=== PATIENT | female | born 2005 | race Caucasian/White ===

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

== ENCOUNTER 2023-01-08 17:21 | Emergency (ER) | payer OTHER, SELFPAY ==
--- NOTE | ~2023-01-08 | XR_ITS ---
EXAMINATION: XR wrist RT min 3V INDICATION: Right wrist pain TECHNIQUE: Four views of the right wrist are obtained. COMPARISON: None available FINDINGS: No fracture, dislocation, or subluxation. The bones, soft tissues, and joint spaces are nor mal. IMPRESSION: 1. No acute osseous abnormality. Reviewed, dictated and finalized at location F.
--- NOTE | 2023-01-08 17:24 | ED.UPPEXIN ---
HPI - Extremity Injury (Upper) General Chief Complaint: Extremity Injury, Upper Stated Complaint: Right Wrist Injury Time Seen by Provider: 01/08/23 17:24 Source: patient Mode of arrival: ambulatory Limitations: no limitations History of Present Illness HPI narrative: Iris is a 17-year-old female patient presenting to the clinic today with complaints of right wrist pain/injury. She reports she was working last night and around 10:00 p.m. she was trying to lift a very heavy trash can and the trash can fell on her and this caused her wrist to hyperflex to her forearm. She is rating pain currently a 4/10. States it feels as though it did when she has previously fractured her right wrist. Is having pain over the ulnar aspect of the dorsal wrist Related Data Home Medications Medication Instructions Recorded Confirmed methylphenidate HCl 36 mg 10 mg PO DAILY 12/16/20 01/08/23 tablet,extended release 24 hr (Concerta) paroxetine HCl 20 mg tablet (Paxil) 20 mg PO QAM 05/17/22 01/08/23 levonorgestrel 120 mcg-e.estradiol 1 patch transdermal WEEKLY 01/08/23 01/08/23 30 mcg/24 hr weekly transderm patch (Twirla) Allergies Allergy/AdvReac Type Severity Reaction Status Date / Time No Known Allergies Allergy Verified 01/08/23 17:25 Review of Systems Review of Systems: Pertinent positives per HPI. Patient denies any fever, chills, rash, headache, visual changes, dizziness, cough, runny nose, sore throat, shortness of breath, chest pain, palpitations, nausea, vomiting, diarrhea, constipation, abdominal pain, or any urinary issues. PMFSH Past Medical History Medical History ADHD Anxiety and depression Asthma Hx of streptococcal infection Seasonal allergies Surgical History Surgical History No significant past surgical history Social History Social History Social History: Patient denies smoking, drinking or using drugs Smoking status: Never smoker Second hand tobacco smoke exposure: No Alcohol intake: never Substance use: never Substance use type: does not use Living arrangements: with family Occupation/Education: student Gender identity (if verbalized by the patient): Female Spiritual care concerns: No Comments At the time of my signature, I reviewed and agree with the nursing past medical, surgical, social, and family history. There is no relevant family history pertinent to the patient complaint. Exam Narrative: General: Well-developed, well nourished, in no apparent distress Head: Normocephalic, atraumatic. Cardio: Regular rate and rhythm, s1 and s2 normal, no murmur appreciated. Resp: Clear to auscultation bilaterally, no rhonchi, rales, wheezing or rubs. Musculoskeletal: No deformity, mild swelling when compared to the left wrist, tender to palpation over the ulnar aspect of the dorsal right wrist, pain with flexion, extension, radial deviation, and ulnar deviation of the right wrist, hand grasps slightly weaker on the right when compared to the left, peripheral pulse strong, no edema, no cyanosis, normal gait and station Course Course Emergency Course: Portions of this record may have been created with voice recognition software. Level of Care: Express Care Visit Vital Signs Vital signs: Vital signs reviewed MDM - Extremity Injury (Upper) MDM Narrative Medical decision making narrative: At the time of visit patient is resting comfortably on the exam table. X-ray of the right wrist was performed and was negative for any sign of fracture or malalignment of the right wrist. I suspect patient has a wrist sprain. Supportive measures were discussed with the patient she voiced understanding discharge instructions and she agrees to treatment plan. Differential Diagnosis Differential diagnosis: Amada
[2023-01-08 17:30] VITALS: BP 120/69; PULSE 83; RESP 18; TEMP 36.7; O2SAT 100
== END 2023-01-08 17:55 | disposition home or self-care (01) ==
PROVIDERS: Emergency Provider Nurse Practitioner Family; PCP Nurse Practitioner Family
DX: S63.501A Unspecified sprain of right wrist, initial encounter (principal); W20.8XXA Other cause of strike by thrown, projected or falling object, initial encounter; Y99.0 Civilian activity done for income or pay; F90.9 Attention-deficit hyperactivity disorder, unspecified type; F41.9 Anxiety disorder, unspecified; F32.A Depression, unspecified; J45.909 Unspecified asthma, uncomplicated
CPT/HCPCS: 73110; 99213; G0463

== ENCOUNTER 2023-06-17 17:31 | Emergency (ER) | payer OTHER, BC, SELFPAY ==
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
[2023-06-17 17:32] VITALS: BP 138/81; PULSE 99; RESP 18; TEMP 36.8; O2SAT 100
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
[2023-06-17] MEDS: ACETAMINOPHEN 325 MG TABLET 650 MG PO (18:20)
--- NOTE | 2023-06-17 18:23 | PC.NURSE ---
C-Collar in place prior to arrival to ED by EMS
[2023-06-17 18:41] LABS: Basophils Percent Auto 0.4 % (0.2-1.2); Eosinophils Absolute Auto 0.2 K/mm3 (0-0.3); Eosinophils Percent Auto 1.9 % (0-4.4); Hematocrit 41.5 % (37.0-47.0); Hemoglobin 13.4 g/dL (12.0-15.0); Immature Granulocyte Absolute 0.03 K/mm3 (0.00-0.031); Immature Granulocyte Percent A 0.4 % (0-0.5); Lymphocytes Absolute Auto 2.29 K/mm3 (0.9-3.2); Lymphocytes Percent Auto 26.9 % (18.3-44.2); Mean Corpuscular HGB Conc 32.3 g/dl (32-36); Mean Corpuscular Hemoglobin 27.7 pg (26-34); Mean Corpuscular Volume 85.7 fl (80-100); Mean Platelet Volume 10.4 fl (7.4-10.4); Monocytes Absolute Auto 0.6 K/mm3 (0.1-0.6); Monocytes Percent Auto 6.7 % (2.6-8.5); Neutrophils Absolute Auto 5.4 K/mm3 (1.3-6.7); Neutrophils Percent Auto 63.7 % (45.5-73.1); Platelet Count Result 263 k/mm3 (150-375); Red Blood Count 4.84 M/mm3 (4.2-5.4); Red Cell Distribution Width 12.8 % (11.5-14.5); White Blood Count 8.5 K/mm3 (4.5-10.0)
[2023-06-17 18:55] LABS: Alanine Aminotransferase 30 U/L (6-35); Albumin Level 4.5 g/dL (3.7-5.6); Alkaline Phosphatase 94 U/L (45-116); Anion Gap 7 mmol/L (4-12); Aspartate Amino Transferase 24 U/L (14-36); Bilirubin,Total 0.3 mg/dL (0.2-1.3); Blood Urea Nitrogen 13 mg/dL (8-21); Calcium 9.6 mg/dL (8.9-10.7); Carbon Dioxide 24 mmol/L (22-30); Chloride 110 mmol/L (98-107); Estimated CRCL calculation 163 ml/min; Estimated Glomerular Filt Rate > 60; Glucose 93 mg/dL (65-110); Potassium 3.9 mmol/L (3.4-5.0); Sodium 141 mmol/L (134-143)
== END 2023-06-17 20:56 | disposition home or self-care (01) ==
PROVIDERS: Physician Assistant; Emergency Provider Physician Assistant; PCP Nurse Practitioner Family
DX: S19.9XXA Unspecified injury of neck, initial encounter (principal); S69.91XA Unspecified injury of right wrist, hand and finger(s), initial encounter; S09.90XA Unspecified injury of head, initial encounter; S29.9XXA Unspecified injury of thorax, initial encounter; J45.909 Unspecified asthma, uncomplicated; F90.9 Attention-deficit hyperactivity disorder, unspecified type; F41.9 Anxiety disorder, unspecified; F32.A Depression, unspecified; V43.52XA Car driver injured in collision with other type car in traffic accident, initial encounter
CPT/HCPCS: 36415; 70450; 70486; 71260; 72125; 73110; 80053; 85025; 99284; A9270; Q9967